=== PATIENT | male | born 1965 | race Caucasian/White ===

== ENCOUNTER 2022-08-30 21:33 | Emergency (ER) | payer OTHER ==
[~2022-08-30 21:33] MED LIST: EPINEPHrine 1:10,000 1 MG/10 ML Syringe IV ONE
[2022-08-30] MEDS ORDERED: Sodium Chloride 0.9% 1,000 ML IV ONE (21:36)
[2022-08-30] MEDS ORDERED: EPINEPHrine 1:10,000 1 MG/10 ML Syringe IV ONE (21:39)
[2022-08-30 22:03] LABS: ESTIMATED GFR 43 mL/min (>60)
[2022-08-30 22:07] LABS: TROPONIN I HIGH SENSITIVITY 171.8 pg/mL (<=60.3)
== END 2022-08-31 11:55 | disposition expired ==
LOC: JP.ED 21:33
DX: I46.9 Cardiac arrest, cause unspecified (principal); E11.9 Type 2 diabetes mellitus without complications
CPT/HCPCS: 31500; 36415; 80053; 83605; 84484; 85025; 92950; 96374; 96376; 99285; J0171; J7030